=== PATIENT | male | born 1960 | race Caucasian/White ===

== ENCOUNTER 2018-06-26 14:37 | Emergency (ER) | payer OTHER ==
--- NOTE | 2018-06-26 14:49 | EDPHY ---
H & P Stated Complaint: tachycardia Time Seen by Provider: 06/26/18 14:49 - Personal History Current Tetanus/Diphtheria Vaccine: Yes Current Tetanus Diphtheria and Acellular Pertussis (TDAP): Yes - Medical/Surgical History Hx Asthma: No Hx Chronic Respiratory Disease: No Hx Diabetes: No Hx Cardiac Disease: No Hx Renal Disease: No Hx Cirrhosis: No Hx Alcoholism: No Hx HIV/AIDS: No Hx Splenectomy or Spleen Trauma: No Other PMH: kidney stones, tonsilectomy - Social History Smoking Status: Never smoked Constitutional: Initial Vital Signs Temperature (C) 36.8 C 06/26/18 14:42 Heart Rate 175 H 06/26/18 14:42 Respiratory Rate 16 06/26/18 14:42 Blood Pressure 155/112 H 06/26/18 14:42 O2 Sat (%) 96 06/26/18 14:42 O2 Delivery Mode Room Air Allergies/Adverse Reactions: No Known Allergies Allergy (Unverified 06/26/18 14:42) Home Medications: Medication Instructions Recorded Metoprolol Tartrate 25 mg PO BID PRN #10 tablet 06/26/18 Medical Decision Making ED Course/Re-evaluation: CHIEF COMPLAINT: Tachycardia. HISTORY OF PRESENT ILLNESS: This patient is a 57 year old male arriving with his complaining of a rapid , irregular heartbeat. He woke up with these symptoms this morning around 7 or 8am. They resolved spontaneously around 1pm. He was able to go to work and denies any increased symptoms with exertion. He did feel distracted due to the sensation of rapid heart rate. He denies any lightheadedness, dizziness, or near -syncope. No chest pain, chest pressure, or shortness of breath. The patient reports he has had similar symptoms in the past, but they have never lasted so long as today. He has had an irregular heartbeat for as long as he can remember with frequent skipped beats. He denies following up with cardiology in the past for this and does not have a current primary care provider. He denies fever, nausea, diaphoresis, diarrhea, urinary complaints, or other associated symptoms. REVIEW OF SYSTEMS: A comprehensive 10 system review of systems is otherwise negative aside from elements mentioned in the history of present illness and medical decision making. PHYSICAL EXAM: HR, BP, O2 Sat, RR. Temp noted General Appearance: Alert, well hydrated, appropriate, and non-toxic appearing. Head: Atraumatic without scalp tenderness or obvious injury Eyes: Pupils equal, round, reactive to light and accommodation, EOMI, no trauma , no injection. Ears: Clear bilaterally, no perforation, normal landmarks Nose: Atraumatic, no rhinorrhea, clear. Throat: There is no erythema or exudates, no lesions, normal tonsils, mucus membranes moist. Neck: Supple, 2+ carotid upstroke, nontender, no lymphadenopathy. Respiratory: No retractions, no distress, no wheezes, and no accessory muscle use. Lungs are clear to auscultation bilaterally. Cardiovascular: Irregular rate with PVCs. Bilateral carotid, radial, dorsalis pedis, and posterior tibial pulses intact. Good capillary refill all extremities. Gastrointestinal: Abdomen is soft, nontender, non-distended, no masses, no rebound, no guarding, no peritoneal signs. Musculoskeletal: Normal active ROM of all extremities, atraumatic. Neurological: Alert, appropriate, and interactive. The patient has normal DTRs and non-focal cranial nerves, motor, sensory, and cerebellar exam. Skin: No rashes, good turgor, no nodules on palpation. Past medical history: Denies Past surgical history: Noncontributory Family history: Noncontributory. 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 Does not abuse tobacco, drugs, or alcohol. DIAGNOSTICS/PROCEDURES/CRITICAL CARE TIME: 14:46 The 12 lead EKG was interpreted by myself. Sinus tachycardia, rate 169. See hard copy and/or "tracemaster" electronic copy for interpretation. 14:59 The 12 lead EKG was interpreted by myself. Sinus rhythm, rate 94. See hard copy and/or "tracemaster" electronic copy for interpretation. DIFFERENTIAL DIAGNOSIS: The differential diagnosis for the patient's narrow complex tachycardia included but was not limited to various causes of sinus tachycardia such as dehydration and medicines, SVT, atrial flutter, atrial fibrillation, pulmonary causes. MEDICAL DECISION MAKIN57 year old male presents with paroxysmal supraventricular tachycardia. EKG at bedside shows SVT, no atrial fibrillation/flutter. See above for EKG interpretation. Plan for labs including CBC, chemistries, troponin. 14:55 Patient converted spontaneously here in the emergency department. Plan for repeat EKG. Repeat EKG shows sinus rhythm. Plan to administer 5mg PO metoprolol for rate control. Reassessed. Patient remains in sinus rhythm and feels well. Patient has PVCs on monitor. Plan to discharge home in good condition with referral to cardiology. I recommended he follow up for nuclear monitoring technician placement for further evaluation. 15:[address] Cardona, yarder operator. His office will call the patient to schedule an appointment. Patient's PSVT is stable when it occurs and he is completely asymptomatic other than noting the increased heart rate. Plan to d/c with prescription for low dose metoprolol to take if symptoms recur prior to follow up with cardiology. Discussed use of this medication with the patient. He is comfortable with this plan. - Data Points Laboratory Results: Laboratory Results 06/26/18 14:52 06/26/18 14:52 06/26/18 06/26/18 06/26/18 14:57 14:52 14:52 WBC 7.10 10^3/uL 10^3/uL (3.80-9.50) RBC 5.49 10^6/uL 10^6/uL (4.40-6.38) Hgb 16.4 g/dL g/dL (13.7-17.5) Hct 45.7 % % (40.0-51.0) MCV 83.2 fL fL (81.5-99.8) MCH 29.9 pg pg (27.9-34.1) MCHC 35.9 g/dL g/dL (32.4-36.7) RDW 14.1 % % (11.5-15.2) Plt Count 255 10^3/uL 10^3/uL (150-400) MPV 9.7 fL fL (8.7-11.7) Neut % (Auto) 46.2 % % (39.3-74.2) Lymph % (Auto) 43.4 % % (15.0-45.0) Arroyo % (Auto) 6.8 % % (4.5-13.0) Eos % (Auto) 2.8 % % (0.6-7.6) Baso % (Auto) 0.4 % % (0.3-1.7) Nucleat RBC Rel Count 0.0 % % (0.0-0.2) Absolute Neuts (auto) 3.28 10^3/uL 10^3/uL (1.70-6.50) Absolute Lymphs (auto) 3.08 10^3/uL H 10^3/uL (1.00-3.00) Absolute Monos (auto) 0.48 10^3/uL 10^3/uL (0.30-0.80) Absolute Eos (auto) 0.20 10^3/uL 10^3/uL (0.03-0.40) Absolute Basos (auto) 0.03 10^3/uL 10^3/uL (0.02-0.10) Absolute Nucleated RBC 0.00 10^3/uL 10^3/uL (0-0.01) Immature Gran % 0.4 % % (0.0-1.1) Immature Gran # 0.03 10^3/uL 10^3/uL (0.00-0.10) Sodium 140 mEq/L mEq/L (135-145) Potassium 4.0 mEq/L mEq/L (3.3-5.0) Chloride 107 mEq/L mEq/L (97-110) Carbon Dioxide 24 mEq/l mEq/l (22-31) Anion Gap 9 mEq/L mEq/L (8-16) BUN 16 mg/dL mg/dL (7-23) Creatinine 1.2 mg/dL mg/dL (0.7-1.3) Estimated GFR > 60 Glucose 131 mg/dL H mg/dL (70-100) Calcium 9.5 mg/dL mg/dL (8.5-10.4) POC Troponin I 0.02 ng/mL ng/mL (0.00-0.08) Point of Care Test Results: Chemistry 06/26/18 14:57 POC Troponin I 0.02 ng/mL ng/mL (0.00-0.08) Departure - Departure Disposition: Home, Routine, Self-Care Clinical Impression: Supraventricular tachycardia Instructions: Supraventricular Tachycardia (ED), Holter Monitoring (ED), Metoprolol (By mouth) Additional Instructions: 1. Follow up with cardiology. The cardiology office should call you to schedule an appointment. Call them if you have not heard by the end of the day tomorrow. 2. Return to the Emergency Department for recurrent symptoms that persist or if you develop fever, chest pain, shortness of breath, increasing pain, lightheadedness, weakness, fainting, or other worsening of condition. 3. Take metoprolol as prescribed as needed for recurrent symptoms. Referrals: Harvey Cardona MD [Medical Doctor] - As per Instructions Mallorie Jackson MD [Medical Doctor] - As per Instructions Report Scribed for: Moses Estrada Report Scribed by: Alexa May Date of Report: 06/26/18 Time of Report: 15:50
[2018-06-26] MEDS ORDERED: ADENOSINE 6 MG/2 ML VIAL ONE (14:50)
[2018-06-26 15:19] LABS: PLATELET COUNT 255 10^3/uL (150-400)
[2018-06-26 15:40] VITALS: BP 129/79
[2018-06-26] MEDS: METOPROLOL TARTRATE 5 MG/5 ML INJ IVP SCH (16:05)
--- NOTE | 2018-06-26 18:29 | CPEKG ---
Test Reason : OPEN Blood Pressure : / mmHG Vent. Rate : 169 BPM Atrial Rate : 169 BPM P-R Int : 000 ms QRS Dur : 083 ms QT Int : 295 ms P-R-T Axes : 000 -43 060 degrees QTc Int : 495 ms Supraventricular tachycardia Left axis deviation ST depression, probably rate related Confirmed by Moses Estrada ([id number]) on 06/26/2018 6:29:26 PM Referred By: Confirmed By:Moses Estrada
--- NOTE | 2018-06-26 18:29 | CPEKG ---
Test Reason : OPEN Blood Pressure : / mmHG Vent. Rate : 094 BPM Atrial Rate : 094 BPM P-R Int : 151 ms QRS Dur : 098 ms QT Int : 358 ms P-R-T Axes : 017 -37 053 degrees QTc Int : 448 ms Sinus rhythm Multiform ventricular premature complexes Probable left atrial enlargement Left axis deviation Anterior infarct, old Confirmed by Moses Estrada ([id number]) on 06/26/2018 6:29:30 PM Referred By: Confirmed By:Moses Estrada
== END 2018-06-26 16:14 | disposition home or self-care (01) ==
DX: I47.1 Supraventricular tachycardia (principal); I49.3 Ventricular premature depolarization
CPT/HCPCS: 84484-PO; J0153

== ENCOUNTER 2018-07-23 06:44 | Observation (INO) | payer OTHER ==
[2018-07-23] MEDS ORDERED: NS 1,000 ML IV ONE (06:49)
[2018-07-23 07:36] LABS: PLATELET COUNT 221 10^3/uL (150-400)
[2018-07-23 07:46] LABS: INR 0.96 (0.83-1.16)
[2018-07-23] MEDS ORDERED: LIDOCAINE 1% 300 MG/30 ML SDV ONE (08:02)
[2018-07-23] MEDS ORDERED: BUPIVACAINE 0.75% 10 ML SDV ONE (08:02)
[2018-07-23] MEDS ORDERED: HEPARIN 10,000 UNIT/10 ML MDV (1,000 UNIT/ML) ONE (08:02)
[2018-07-23] MEDS ORDERED: ISOPROTERENOL HCL/D5W 0.2 MG/50 ML BAG IV ONE (08:02)
--- NOTE | 2018-07-23 08:08 | PDANEPAE ---
ANE History of Present Illness here for ablation ANE Past Medical History - Cardiovascular History Hx Hypertension: No Hx Arrhythmias: Yes Hx Chest Pain: No Hx Coronary Artery / Peripheral Vascular Disease: No Hx CHF / Valvular Disease: No Hx Palpitations: No - Pulmonary History Hx COPD: No Hx Asthma/Reactive Airway Disease: No Hx Recent Upper Respiratory Infection: No Hx Oxygen in Use at Home: No Hx Sleep Apnea: No - Endocrine History Hx Diabetes: No Hypothyroid: No Hyperthyroid: No - Renal History Hx Renal Disorders: No ANE Review of Systems Review of systems is: negative Review of Systems: - Exercise capacity Exercise capacity: >=4 METS ANE Patient History - Allergies Allergies/Adverse Reactions: No Known Allergies Allergy (Verified 07/18/18 10:07) - Home Medications Home Medications: Ibuprofen [Motrin (*)] 200 mg PO DAILY PRN 07/18/18 [Last Taken Unknown] Chlorpheniramine Maleate PO 07/23/18 [Last Taken 07/21/18] - NPO status NPO Status: no food or drink >8 hours - Smoking Hx Smoking Status: Never smoked ANE Labs/Vital Signs - Labs Result Diagrams: 07/23/18 07:00 07/23/18 07:00 - Vital Signs Vital Signs: reviewed preoperatively; see RN documention for details Height: 180 cm Weight: 93 kg ANE Physical Exam - Airway Neck exam: FROM Mallampati Score: Class 2 Mouth exam: normal dental/mouth exam - Pulmonary Pulmonary: no respiratory distress - Cardiovascular Cardiovascular: regular rate and rhythym - ASA Status ASA Status: I ANE Anesthesia Plan Anesthesia Plan: general endotracheal anesthesia
[2018-07-23] MEDS ORDERED: ROCURONIUM 100 MG/10 ML VIAL ONE (08:32)
[2018-07-23] MEDS ORDERED: PROPOFOL/EMULSION 500 MG/50 ML BOTTLE IV ONE (08:32)
[2018-07-23] MEDS ORDERED: MIDAZOLAM 2 MG/2 ML VIAL ONE (08:32)
--- NOTE | 2018-07-23 08:50 | PDGENHP ---
History & Physical Chief Complaint: svt Relevant Physical Exam: s1s2 rrr cta ao3 Cardiorespiratory Assessment: symptomatic svt for ablation
[2018-07-23] MEDS ORDERED: fentaNYL 100 MCG/2 ML INJ ONE (08:55)
[2018-07-23] MEDS ORDERED: PHENYLEPHRINE HCL 100 MCG/ML SYR ONE (09:10)
[2018-07-23] MEDS ORDERED: ePHEDrine SULFATE 25 MG/5 ML SYR ONE (09:16)
[2018-07-23] MEDS ORDERED: ADENOSINE 6 MG/2 ML VIAL ONE ×3 (09:55→09:56)
[2018-07-23] MEDS ORDERED: SUGAMMADEX SODIUM 200 MG/2 ML VIAL IVP ONE (11:50)
[2018-07-23] MEDS ORDERED: CHLORPHENIRAMINE MALEATE 4 MG TAB PO PRN (11:56)
[2018-07-23] MEDS ORDERED: ONDANSETRON 4 MG/2 ML VIAL ONE (12:05)
--- NOTE | 2018-07-23 12:12 | EPPROC ---
Electrophysiology Procedure Note: ELECTROPHYSIOLOGIC STUDY AND CATHETER MEDIATED ABLATION OF ATYPICAL AV ETHAN REENTRY TACHYCARDIA AND FOCAL PARAHISIAN RIGHT ATRIAL TACHYCARDIA PROCEDURES PERFORMED: 68366-49 EP evaluation with RA/RV/LA pace/record, with arrhythmia induction 22258-41 EP evaluation with RA/RV pace record, insert/reposition catheter, with arrhythmia induction 48099 Intracardiac catheter ablation, SVT arrhythmogenic focus Second arrhythmia 16188 3D mapping Fluoroscopy INDICATION: Adenosine sensitive SVT PROCEDURE: Catheters & Anesthesia: The patient arrived in the Electrophysiology Laboratory in the fasting state. The right clavicular region, right groin, and left groin area were prepped and draped in the usual sterile manner. Anesthesiologist Dr. Ezequiel Carrasco administered general anesthesia. Appropriate non-invasive blood pressure, pulse oximetry and end-tidal CO2 monitoring was established. All catheters were placed percutaneously using the modified Seldinger technique , and advanced into position under fluoroscopic guidance. One #6 Prydeinig hexapolar non-deflectable electrode catheter was inserted into the right atrial appendage via the left femoral vein (2mm spacing; except the proximal ring which was 25cm from the tip used for unipolar recordings). One #7 Prydeinig deflectable octapolar electrode catheter was advanced to the His-bundle position via the left femoral vein (2mm spacing). One #7 Prydeinig deflectable quadrapolar catheter was advanced to the anteroseptal right ventricle via the right femoral vein. One #7 Prydeinig deflectable catheter with 10 pairs of electrodes was placed via the right femoral vein into the coronary sinus. Heparin was given to keep ACT > 250 s. Programmed stimulation was performed from the right atrium, right ventricle and coronary sinus (left atrium). Parahisian pacing demonstrated constant H-A interval with changing V-A intervals and stimulus-A intervals during capture and loss of capture of proximal RBB proving retrograde conduction over AV node. 2 SVT were induced: 1. Parahisian atrial tachycardia - VA dissociation was induced by ventricular pacing. Intermittently, there was entrainment and post entrainment there was VAAHV response. 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 Earliest activation in the slow pathway area High resolution 3D map of AT was done using Mobi sheath and 4 mm catheter. Para Hisian atrial tachycardia was mapped just posterior to the fast AV ethan pathway area. Mapping in this area caused bump block. RF applications were applied at this area and after this atrial tachycardia was not inducible. ( This atrial tachycardia was adenosine sensitive). Ablation for AVNRT was done in the typical fashion. RF applications were delivered to the region between the tricuspid annulus and the coronary sinus ostium, at the level of the upper edge of the coronary sinus ostium. Radiofrequency applications were also delivered along the roof of the proximal coronary sinus. Junctional rhythm occurred. Programmed stimulation was continued post ablation at baseline and during graded doses of isoproterenol upto 4mcg/min. Sustained AVNRT was not inducible. There were single echo beats. The catheters were removed. The long sheath was changed to a short 9 Fr sheath. The patient was transferred to the cardiovascular holding area in stable condition. Vascular access sheaths were removed in the holding area. There were no apparent complications. Results: A. Spontaneous Intervals: Pre ablation SCL 580 ms AH 60 ms HV 40 ms Post ablation SCL 520 ms AH 55 ms HV 40 ms B. Antegrade AV ethan function (decremental pacing) Pre ablation FPERP 300 ms WBB CL 290 ms Post ablation FPERP 290 ms WBB CL 280 ms C. Retrograde AV ethan function (decremental pacing) Pre ablation FPERP 350 ms WBB CL 340 ms CONCLUSIONS 1. Atypical (Fast/Slow) AVNRT. Successful ablation. 2. Focal atrial tachycardia, right atrium, posterior to fast AV ethan pathway area. Successful ablation. 3. No complications. Patient Problems: Problems Problem Status Onset Supraventricular tachycardia Acute
--- NOTE | 2018-07-23 12:23 | POSTANESTH ---
Post Anesthetic Evaluation Cardiovascular Status: Normal, Stable Respiratory Status: Normal, Stable Level of Consciousness/Mental Status: Can Participate in Eval Pain Control: Adequate, Prn Tx Ordered Nausea/Vomiting Control: Adequate, Prn Tx Ordered Complications Possibly Related to Anesthesia: None Noted
[2018-07-24 04:27] LABS: PLATELET COUNT 209 10^3/uL (150-400)
[2018-07-24 07:13] VITALS: BP 130/70
[2018-07-24] MEDS ORDERED: ASPIRIN 81 MG CHEWABLE TAB PO SCH (09:00)
--- NOTE | 2018-07-24 09:30 | ECHO ---
[email or web address] [address] [address] Main: [phone] Fax: Transthoracic Echocardiogram Name: GOGO CURTIS MR#: [id number] Study Date: 07/24/2018 Study Time: 07:52 AM Date of : 1960 Age: 57 year(s) Height: 177.8 cm (70 in.) Weight: 92.99 kg (205 lb.) BSA: 2.11 m2 Gender: Male Examination: Echo Indication: F/U Post EP Study Image Quality: Adequate Contrast: Requested by: Kamar Bonds BP: 130 mmHg/70 mmHg Heart Rate: Rhythm: Indication: F/U Post EP Study Procedure Staff Supportive Employment Case Manager: Emily Mcfarlane [facility] Reading Physician: Alin Patel MD Requesting Provider: Conclusions: Normal size left ventricle. No LV hypertrophy. Normal global systolic LV function. EF is 55 %. No regional wall motion abnormality. Normal size right ventricle. The left atrium is normal in size. The right atrium is normal in size. The mitral valve is normal in appearance and function. Mild mitral valve regurgitation is present. The aortic valve is tri-leaflet. Mild aortic valve regurgitation is present. The tricuspid valve is normal in appearance and function. Mild tricuspid regurgitation is present. Right ventricular systolic pressure measures 21mmHg. There is no pulmonic regurgitation seen. Normal size ascending aorta measuring 3.0 cm. Measurements: Chambers Valvular Assessment AV/MV Valvular Assessment TV/PV Normal Normal Normal Name Value Range Name Value Range Name Value Range Ao Omaira (2D): 3.2 cm (1.4 cm-2.6 AV Vmax: 1.32 m/s (1 m/s-1.7 TR Vmax: 2.01 mm/s ( - ) cm) m/s) TR PGmax: 16 mmHg ( - ) IVSd (2D): 0.9 cm (0.6 cm-1.1 AV maxP mmHg ( - ) syst. PAP: 21 mmHg ( - ) cm) AV meanP mmHg ( - ) PV Vmax: 1.02 m/s (0.6 m/s-0.9 LVDd (2D): 5.0 cm (4.2 cm-5.9 OSCAR (VTI): 3.2 cm ( - ) m/s) cm) MV E Vmax: 0.49 m/s ( - ) PV PGmax: 4 mmHg ( - ) LVDs (2D): 3.6 cm (2.1 cm-4 MV A Vmax: 0.74 m/s ( - ) cm) MV E/A: 0.66 ( - ) Patient: GOGO CURTIS Study Date: 07/24/2018 Page 1 of 2 07:52 AM LVPWd (2D): 1.1 cm (0.6 cm-1 MV PHT: 0.101 s ( - ) cm) MVA (PHT): 2.2 s ( - ) LVOTd 2.4 cm 2.4 cm mm LVEF (BP): 55 % (>=55 %) RVDd(2D): 3.2 cm (1.9 cm-3.8 cmmm) Continued Measurements: Chambers Valvular Assessment AV/MV Valvular Assessment TV/PV Name Value Name Value Name Value LADs: 3.4 cm MV DecTime: 299 m/s CVP (est.): 5 mmHg LADs Lon.5 cm MV E' Septal: 0.05 m/s LA Area: 12.8 cm2 MV E/E' Septal: 9.20 LA Volume: 37 ml MV E/E' Lateral: 9.70 LA Volume Index: 17.5 ml/m2 RA Area: 14.5 cm2 Additional Vessels Name Value Ao Ascendin.0 cm Findings: Left Ventricle: Normal size left ventricle. No LV hypertrophy. Normal global systolic LV function. EF is 55 %. No regional wall motion abnormality. Normal diastolic LV function. Right Ventricle: Normal size right ventricle. Normal RV function. Left Atrium: The left atrium is normal in size. Right Atrium: The right atrium is normal in size. Mitral Valve: The mitral valve is normal in appearance and function. Mild mitral valve regurgitation is present. No mitral stenosis is present. Aortic Valve: The aortic valve is tri-leaflet. Mild aortic valve regurgitation is present. No aortic valve stenosis is present. Tricuspid Valve: The tricuspid valve is normal in appearance and function. Mild tricuspid regurgitation is present. The pulmonary artery pressure is normal. Right ventricular systolic pressure measures 21mmHg. Pulmonic Valve: The pulmonic valve is normal in appearance and function. There is no pulmonic regurgitation seen. Aorta: The aorta is normal. Normal size aortic root measuring 3.2 cm. Normal size ascending aorta measuring 3.0 cm. IVC: The IVC is normal sized. Pericardium: No pericardial effusion. No pleural effusion. (No Signature Object) Patient: GOGO CURTIS Study Date: 07/24/2018 Page 2 of 2 07:52 AM [id number]
--- NOTE | 2018-07-24 10:18 | CPEKG ---
Test Reason : OPEN Blood Pressure : / mmHG Vent. Rate : 097 BPM Atrial Rate : 097 BPM P-R Int : 158 ms QRS Dur : 095 ms QT Int : 363 ms P-R-T Axes : 056 -07 045 degrees QTc Int : 461 ms Sinus rhythm Multiple ventricular premature complexes Anteroseptal infarct, old Confirmed by Alin Patel ([id number]) on 07/24/2018 10:17:39 AM Referred By: Confirmed By:Alin Patel
--- NOTE | 2018-07-24 10:22 | CPEKG ---
Test Reason : OPEN Blood Pressure : / mmHG Vent. Rate : 097 BPM Atrial Rate : 097 BPM P-R Int : 154 ms QRS Dur : 091 ms QT Int : 373 ms P-R-T Axes : 024 005 049 degrees QTc Int : 474 ms Sinus rhythm Minimal ST elevation, anterior leads Unchanged from prior Confirmed by Alin Patel ([id number]) on 07/24/2018 10:22:26 AM Referred By: Confirmed By:Alin Patel
--- NOTE | 2018-07-24 12:20 | GDS ---
DISCHARGE DIAGNOSIS: Supraventricular tachycardia, status post ablation of atypical atrioventricular flores reentrant tachycardia on 07/23/2018. PROCEDURES: 1. 07/23/2018, EP study. 2. 07/24/2018, echocardiogram which showed normal LVEF at 55%. Mild MR, mild AR and mild TR. BRIEF HISTORY: Please see dictated H and P by Dr. Bonds dated 06/29/2018, for complete details. In [facility], the patient is a 57-year-old male who was referred for frequent episodes of SVT. He had 1 episo de which took him to the emergency department. He was found in narrow complex tachycardia, likely mo st promotions representative of AVNRT. Options were reviewed and patient was amenable to EP study with ablation . This was performed successfully on 07/23/2018. PHYSICAL EXAM: VITAL SIGNS: On day of discharge, blood pressure 130/70, heart rate of 85, respirati ons 12, O2 saturation 91% on room air. GENERAL: He is a pleasant male in no apparent distress. BEHZAD NT: Normocephalic, atraumatic. Eyes are without scleral icterus. HEART: Regular rate and rhythm. LUNGS: Clear. SKIN: Bilateral groin sites without ecchymosis or bruit. Pursestring sutures were removed today. LABORATORY DATA: CBC with WBC 7.64, hemoglobin 14.6, hematocrit 41.7, platelet count of 209. BMP wi th sodium 142, potassium 4, chloride 107, CO2 23, BUN 18, creatinine 1.2. Troponin 0.307, is consist ent with recent ablation. RESULTS PENDING: None. DIET: Per previous. ACTIVITY: Groin precautions were reviewed. DISCHARGE MEDICATIONS: Please see med reconciliation. He may continue his chlorpheniramine and ibup rofen. He is to start aspirin 81 mg p.o. daily. DISCHARGE INSTRUCTIONS: Follow up with Dr. Bonds in 1 months' time. /[id number]/MODL
--- NOTE | 2018-07-26 11:53 | CPEKG ---
Test Reason : OPEN Blood Pressure : / mmHG Vent. Rate : 079 BPM Atrial Rate : 079 BPM P-R Int : 144 ms QRS Dur : 094 ms QT Int : 398 ms P-R-T Axes : 029 -32 041 degrees QTc Int : 457 ms Sinus rhythm Ventricular bigeminy Probable left atrial enlargement Left axis deviation Anterior infarct, old Confirmed by Alin Patel ([id number]) on 07/26/2018 11:52:15 AM Referred By: Confirmed By:Alin Patel
== END 2018-07-24 11:28 | disposition home or self-care (01) ==
LOC: FCATH 06:44 → F2W 12:03
PROVIDERS: ADMIT Internal Medicine Cardiovascular Disease; ATTEND Internal Medicine Cardiovascular Disease
PROC: 5A1213Z Performance of Cardiac Pacing, Intermittent (ICD-10-PCS; principal; 2018-07-23)
PROC: 4A023FZ Measurement of Cardiac Rhythm, Percutaneous Approach (ICD-10-PCS; principal; 2018-07-23)
PROC: B2161ZZ Fluoroscopy of Right and Left Heart using Low Osmolar Contrast (ICD-10-PCS; principal; 2018-07-23)
PROC: 02573ZZ Destruction of Left Atrium, Percutaneous Approach (ICD-10-PCS; principal; 2018-07-23)
PROC: 02K83ZZ Map Conduction Mechanism, Percutaneous Approach (ICD-10-PCS; principal; 2018-07-23)
PROC: 025K3ZZ Destruction of Right Ventricle, Percutaneous Approach (ICD-10-PCS; principal; 2018-07-23)
PROC: 02563ZZ Destruction of Right Atrium, Percutaneous Approach (ICD-10-PCS; principal; 2018-07-23)
DX: I47.1 Supraventricular tachycardia (principal); Z23 Encounter for immunization
CPT/HCPCS: 90471; 93005; 93306; 93613; 93621; 93623; 93653; 93655; C1730; C1732; G0378; C1731; C1766; G0008; J0153; J1644; J2250; J2370; J2405; J2704; J3010